=== PATIENT | female | born 1980 | race American Indian/Alaskan Native ===

== ENCOUNTER 2016-06-22 10:12 | Emergency (ER) | payer BC ==
[2016-06-22 11:05] VITALS: BP 108/71
--- NOTE | 2016-06-22 11:28 | Emergency Department Report ---
Chief Complaint: Adult Asthma Stated Complaint: ASTHMA Time Seen by Provider: 06/22/16 11:23 - HPI History of Present Illness: 35 y/o female complain of shortness of breath and difficulty breathing x 3 days .pt state that she was [facility] at [facility] prior to arrival .pt state she was given albuterol treatment x 5. Patient states she was given albuterol and Solu- Medrol and route by EMS. She states it presents she feel dizzy and feel that her heart is racing. Patient denies any shortness of breath at present. - ROS Review of Systems: per HPI - Exam Vital Signs: Vital Signs 06/22/16 11:00 Temperature 98.6 F Pulse Rate 73 Respiratory 20 Rate Blood Pressure 108/71 O2 Sat by Pulse 98 Oximetry Physical Exam: GENERAL: The patient is well-developed and well-nourished. Patient is in NAD. HENT: Normocephalic. Atraumatic. Patient has moist mucous membranes. Throat: No erythema, swelling or exudates. EYES: Extraocular motions are intact, PERRL NECK: Supple. No meningitic signs are noted. There is no adenopathy noted. CHEST/LUNGS: wheezing noted bilateral . There is no respiratory distress noted. HEART/CARDIOVASCULAR: Regular rate and rhythm. Normal S1 S2. No murmurs, rubs , clicks, or gallops. ABDOMEN: Abdomen is soft, nontender.. Bowel sounds normoactive. There is no abdominal distention. Negative rebound tenderness. : Deferred. SKIN: There is no rash. There is no edema. There is no diaphoresis. NEURO: The patient is A&Ox3. The patient has no focal neurologic deficits. MUSCULOSKELETAL: There is no tenderness or deformity. There is no limitation range of motion. PSYCH: Pt has appropriate mood and affect. MSE screening note: Focused history and physical exam performed. Due to findings the following was ordered: ED Disposition for MSE Condition: Stable
[2016-06-22 12:25] LABS: Hematocrit 42.4 % (30.3-42.9); Hemoglobin 14.9 gm/dl (10.1-14.3); Mean Corpuscular HGB Conc 35 % (30-34); Mean Corpuscular Hemoglobin 29 pg (28-32); Mean Corpuscular Volume 82 fl (79-97); Platelet Count 211 K/mm3 (140-440); Red Blood Count 5.14 M/mm3 (3.65-5.03); Red Cell Distribution Width 13.7 % (13.2-15.2); White Blood Count 14.2 K/mm3 (4.5-11.0)
[2016-06-22 12:46] LABS: Blood Urea Nitrogen 7 mg/dL (7-17); Calcium 9.4 mg/dL (8.4-10.2); Carbon Dioxide 21 mmol/L (22-30); Chloride 99.5 mmol/L (98-107); Glucose 141 mg/dL (65-100); Potassium 4.3 mmol/L (3.6-5.0); Sodium 139 mmol/L (137-145)
[2016-06-22 12:48] LABS: Anion Gap 23 mmol/L
[2016-06-22 13:15] LABS: Basophils % (Manual) 0 % (0.0-1.8); Blastocytes % (Manual) 0 %; Eosinophils % (Manual) 0 % (0.0-4.3)
[2016-06-22 13:16] LABS: Anisocytosis Few
[2016-06-22 13:17] LABS: Diff Status Complete
--- NOTE | 2016-06-23 04:24 | ED Elopement Review ---
ED Pt Elopement review - Results review Lab results: Laboratory Tests 06/22/16 06/22/16 12:14 12:14 WBC 14.2 H RBC 5.14 H Hgb 14.9 H Hct 42.4 MCV 82 MCH 29 MCHC 35 H RDW 13.7 Plt Count 211 Add Manual Diff Complete Total Counted 100 Seg Neutrophils % Paper Deliverer Seg Neuts % (Manual) 98.0 H Band Neutrophils % 0 Lymphocytes % (Manual) 1.0 L Reactive Lymphs % (Man) 0 Monocytes % (Manual) 1.0 Eosinophils % (Manual) 0 Basophils % (Manual) 0 Metamyelocytes % 0 Myelocytes % 0 Promyelocytes % 0 Blast Cells % 0 Nucleated RBC % Not Reportable Seg Neutrophils # Man 13.9 H Band Neutrophils # 0.0 Lymphocytes # (Manual) 0.1 L Abs React Lymphs (Man) 0.0 Monocytes # (Manual) 0.1 Eosinophils # (Manual) 0.0 Basophils # (Manual) 0.0 Metamyelocytes # 0.0 Myelocytes # 0.0 Promyelocytes # 0.0 Blast Cells # 0.0 WBC Morphology Not Reportable Hypersegmented Neuts Not Reportable Hyposegmented Neuts Not Reportable Hypogranular Neuts Not Reportable Smudge Cells Not Reportable Toxic Granulation Not Reportable Toxic Vacuolation Not Reportable Dohle Bodies Not Reportable Pelger-Huet Anomaly Not Reportable Yusef Rods Not Reportable Platelet Estimate Appears normal Clumped Platelets Not Reportable Plt Clumps, EDTA Not Reportable Large Platelets Not Reportable Giant Platelets Not Reportable Platelet Satelliting Not Reportable Plt Morphology Comment Not Reportable RBC Morphology Not Reportable Dimorphic RBCs Not Reportable Polychromasia Not Reportable Hypochromasia Not Reportable Poikilocytosis Not Reportable Anisocytosis Few Microcytosis Not Reportable Macrocytosis Not Reportable Spherocytes Not Reportable Pappenheimer Bodies Not Reportable Sickle Cells Not Reportable Target Cells Not Reportable Tear Drop Cells Not Reportable Ovalocytes Not Reportable Helmet Cells Not Reportable Nicholson-Gloster Bodies Not Reportable [place] Rings Not Reportable [place] Cells Not Reportable Bite Cells Not Reportable Crenated Cell Not Reportable Elliptocytes Not Reportable Acanthocytes (Spur) Not Reportable Rouleaux Not Reportable Hemoglobin C Crystals Not Reportable Schistocytes Not Reportable Malaria parasites Not Reportable Favio Bodies Not Reportable Hem Pathologist Commnt No Sodium 139 Potassium 4.3 Chloride 99.5 Carbon Dioxide 21 L Anion Gap 23 BUN 7 Creatinine 0.7 Estimated GFR > 60 BUN/Creatinine Ratio 10.00 Glucose 141 H Calcium 9.4 - Call Back decision Pt Call Back Decision: No action required
== END 2016-06-22 12:15 | disposition left against medical advice (07) ==
LOC: ED 10:12
DX: R06.02 Shortness of breath (principal); R06.00 Dyspnea, unspecified; Z53.21 Procedure and treatment not carried out due to patient leaving prior to being seen by health care provider
CPT/HCPCS: 36415; 80048; 85007; 85025; 93005; 93010